=== PATIENT | female | born 1965 | race Caucasian/White ===

== ENCOUNTER 2017-10-28 21:01 | Emergency (ER) | payer OTHER | END 2017-10-28 23:10 | disposition home or self-care (01) | LOC: FTE 21:01 | DX: J06.9 Acute upper respiratory infection, unspecified (principal) | CPT/HCPCS: 71045; 93005; 99284-25 ==

== ENCOUNTER 2018-04-05 08:42 | Emergency (ER) | payer OTHER ==
[2018-04-05] MEDS: HYDROmorphONE 1 MG/ML SYG IV ×2 (09:32→12:31)
[2018-04-05] MEDS: ONDANSETRON 4 MG INJ IV ×2 (09:32→12:31)
[2018-04-05 09:43] LABS: ADD MAN DIFF? NO
[2018-04-05 09:46] LABS: BASOPHILS % 0.3 % (0.0-2.0); EOSINOPHILS # 0.1 10^3/ul (0.0-0.5); EOSINOPHILS % 0.9 % (0.0-7.0); HEMATOCRIT 36.7 % (37.0-47.0); HEMOGLOBIN 11.8 g/dl (12.0-16.0); LYMPHOCYTES # 2.2 10^3/ul (0.8-2.9); LYMPHOCYTES % 29.2 % (15.0-51.0); MEAN CORPUSCULAR HEMOGLOBIN 29.4 pg (29.0-33.0); MEAN CORPUSCULAR HGB CONC 32.2 g/dl (32.0-37.0); MEAN CORPUSCULAR VOLUME 91.3 fl (82.0-101.0); MEAN PLATELET VOLUME 10.2 fl (7.4-10.4); MONOCYTE # 0.4 10^3/ul (0.3-0.9); MONOCYTES % 4.6 % (0.0-11.0); NEUTROPHIL # 4.9 10^3/ul (1.6-7.5); NEUTROPHILS % 64.6 % (39.0-77.0); PLATELET COUNT 271 10^3/UL (140-415); RED BLOOD COUNT 4.02 10^6/ul (4.20-5.40); RED CELL DISTRIBUTION WIDTH 12.7 % (11.5-14.5)
[2018-04-05 09:46] LABS: WHITE BLOOD COUNT 7.6 10^3/ul (4.8-10.8)
[2018-04-05 10:04] LABS: ALANINE AMINOTRANSFERASE 30 IU/L (13-69); ALBUMIN 4.2 g/dl (3.3-4.9); ALBUMIN/GLOBULIN RATIO 1.55; ALKALINE PHOSPHATASE 53 IU/L (42-121); ANION GAP 7 (5-13); ASPARTATE AMINO TRANSFERASE 23 IU/L (15-46); BILIRUBIN,INDIRECT 0.2 mg/dl (0-1.1); BILIRUBIN,TOTAL 0.2 mg/dl (0.2-1.3); BLOOD UREA NITROGEN 12 mg/dl (7-20); CALCIUM 9.2 mg/dl (8.4-10.2); CARBON DIOXIDE 24 mmol/L (21-31); CHLORIDE 112 mmol/L (97-110); Estimated GFR > 60 mL/min (>60); GLUCOSE 104 mg/dl (70-220); LIPASE 91 U/L (23-300); SODIUM 143 mmol/L (135-144); TOTAL PROTEIN 6.9 g/dl (6.1-8.1)
== END 2018-04-05 12:55 | disposition home or self-care (01) ==
LOC: E/R 08:42
DX: K80.20 Calculus of gallbladder without cholecystitis without obstruction (principal); F17.210 Nicotine dependence, cigarettes, uncomplicated
CPT/HCPCS: 36415; 76705; 80053; 83690; 85025; 96374; 96375; 96376; 99285-25

== ENCOUNTER 2018-06-29 22:50 | Emergency (ER) | payer OTHER ==
[2018-06-30] MEDS: PROMETHAZINE/CODEINE 5ML CUP PO (03:10)
== END 2018-06-30 03:53 | disposition home or self-care (01) ==
LOC: FTE 22:50
DX: J06.9 Acute upper respiratory infection, unspecified (principal); F17.210 Nicotine dependence, cigarettes, uncomplicated
CPT/HCPCS: 71045; 93005; 99284-25